=== PATIENT | female | born 1960 | race Caucasian/White ===

== ENCOUNTER → 2016-09-26 | Outpatient (CLI) | payer BC ==
[~2016-09-26] MED LIST: ALEVE 220MG220 MG PO; ANTIVERT 25MG25 MG PO; AZILECT0.5 MG PO; CALCIUM + D 5001 TAB PO; COMBIVENT INH14.7 GM IH; FERREX 150150 MG PO; FLOVENT 44MCG I13 GM IH; FORTAMET1000 MG PO; IMITREX25 MG PO; JANUVIA100 MG PO; LANTUS SOLOS100 U/ML SC; LIPITOR 10MG10 MG PO; MULTIVITAMIN FO1 CAP PO; RT ALBUTER2.5 MG/0.5 IH; VENTOLIN0.09 MG IH; ZESTRIL 10MG10 MG PO; ZYRTEC 10MG10 MG PO; [UNRECOGNIZED DRUG - OTHER] PO
== END ==
LOC: MC.RAD 09:48
DX: Z12.31 Encounter for screening mammogram for malignant neoplasm of breast (principal)

== ENCOUNTER → 2017-11-05 | Outpatient (CLI) | payer BC | LOC: MC.RAD 10:34 | DX: Z12.31 Encounter for screening mammogram for malignant neoplasm of breast (principal) ==

== ENCOUNTER → 2018-10-28 | Outpatient (CLI) | payer BC | LOC: MC.RAD 13:05 | DX: Z12.31 Encounter for screening mammogram for malignant neoplasm of breast (principal); N63.10 Unspecified lump in the right breast, unspecified quadrant ==

== ENCOUNTER → 2018-11-01 | Outpatient (CLI) | payer BC | LOC: MC.RAD 09:24 | DX: N60.01 Solitary cyst of right breast (principal) ==

== ENCOUNTER 2019-05-06 13:11 | Emergency (ER) | payer BC ==
[~2019-05-06] VITALS: Ht 160 cm; Wt 88.6 kg
[2019-05-06 13:55] LABS: COLLECTION METHOD CLEAN CATCH
[2019-05-06 14:00] LABS: BASO % 0.4 % (0.0-2.0); EOS # 0.2 (0.0-0.7); EOS % 1.5 % (0-4.0); GRAN # 7.8 (1.4-6.5); GRAN % 70.9 % (42.2-75.2); HEMATOCRIT 42.5 % (37.0-47.0); HEMOGLOBIN 14.5 g/dl (12.5-16.0); LYMPH # 2.1 (1.2-3.4); LYMPH % 19.2 % (20.0-51.0); MEAN CELL VOLUME 92 fl (80.0-100.0); MEAN CORPUSCULAR HEMOGLOBIN 31 pg (27.0-31.0); MEAN CORPUSCULAR HGB CONC 34 g/dl (33.0-37.0); MEAN PLATELET VOLUME 10.9 fl (7.4-10.4); MONO # 0.8 (0.1-0.6); MONO % 7.5 % (1.7-9.3); PLATELET COUNT 240 K/mm3 (130-400); RED BLOOD COUNT 4.64 M/mm3 (4.10-5.30); REDCELL DISTRIBUTION WIDTH-CV 12.7 % (11.5-14.5)
[2019-05-06 14:03] LABS: PH 5 (5-8); SQUAMOUS EPITHELIAL 0-2 /hpf; URINE APPEARANCE Clear; URINE BACTERIA None Seen /hpf; URINE BILIRUBIN Negative (NEGATIVE); URINE BLOOD Negative (NEGATIVE); URINE COLOR Straw; URINE GLUCOSE Negative (NEGATIVE); URINE KETONE Negative (NEGATIVE); URINE LEUKOCYTE ESTERASE Negative (NEGATIVE); URINE NITRATE Negative (NEGATIVE); URINE PROTEIN(semi-quant) Negative (NEGATIVE); URINE RBC 0-2 /hpf; URINE UROBILINOGEN Negative (NEGATIVE)
[2019-05-06 14:13] LABS: ALBUMIN 4.5 gm/dL (3.5-5.0); BILIRUBIN,TOTAL 0.5 mg/dL (0.0-1.0); C-REACTIVE PROTEIN 4.6 mg/dL (0.0-0.9); CALCIUM 10.5 mg/dL (8.4-10.2); CREATININE, serum 0.6 (0.52-1.25); POTASSIUM 3.8 mmol/L (3.4-5.0); TOTAL PROTEIN 7.3 gm/dL (6.4-8.2)
[2019-05-06] MEDS ORDERED: LEVAQUIN 750MG750 M1 PO (15:25)
[2019-05-06] MEDS ORDERED: FLAGYL500 MG PO (15:25)
[2019-05-06 16:35] VITALS: BP 130/88; PULSE 86; TEMP 98.2
== END 2019-05-06 16:35 | disposition home or self-care (01) ==
LOC: COL.ER 13:11
PROVIDERS: Emergency Medicine
DX: K57.92 Diverticulitis of intestine, part unspecified, without perforation or abscess without bleeding (principal); E11.9 Type 2 diabetes mellitus without complications; I10 Essential (primary) hypertension; E78.5 Hyperlipidemia, unspecified; J45.909 Unspecified asthma, uncomplicated; Z79.51 Long term (current) use of inhaled steroids; Z79.4 Long term (current) use of insulin
CPT/HCPCS: J1200; Q9967

== ENCOUNTER 2020-07-05 10:11 | Emergency (ER) | payer BC ==
[~2020-07-05] VITALS: Ht 162.6 cm; Wt 90.5 kg
[~2020-07-05 10:11] MED LIST changes: +FLAGYL500 MG PO; +LEVAQUIN 750MG750 M1 PO
[2020-07-05 10:55] VITALS: TEMP 98.7
[2020-07-05] MEDS ORDERED: LEVEMIR100 U/ML SQ ×2 (11:40→11:41)
[2020-07-05] MEDS ORDERED: FERROUS GL325 MG/TAB (11:42)
[2020-07-05] MEDS ORDERED: FERRO-TIME325 MG PO (11:42)
[2020-07-05] MEDS ORDERED: GLUCOPHAGE1000 MG PO (11:43)
[2020-07-05] MEDS ORDERED: GLUCOPHAGE500 MG/TAB PO (11:44)
[2020-07-05] MEDS ORDERED: IMITREX 25MG TA25 MG PO (11:45)
[2020-07-05] MEDS ORDERED: REQUIP XL4 MG PO (11:45)
[2020-07-05] MEDS ORDERED: SINGULAIR 110 MG/TAB PO (11:45)
[2020-07-05] MEDS ORDERED: MASON NATURAL2000 IU PO (11:46)
[2020-07-05 12:03] LABS: PROTHROMBIN TIME 10.6 SECONDS (9.7-12.8)
[2020-07-05 12:07] LABS: D-DIMER < 200.00 ng/mLDDu (200-230)
[2020-07-05 12:11] LABS: BASO # 0.1 (0.0-0.2); BASO % 0.7 % (0.0-2.0); EOS # 0.2 (0.0-0.7); EOS % 2.6 % (0-4.0); GRAN # 4.5 (1.4-6.5); GRAN % 64.7 % (42.2-75.2); HEMATOCRIT 42.7 % (37.0-47.0); HEMOGLOBIN 14.4 g/dl (12.5-16.0); LYMPH # 1.7 (1.2-3.4); LYMPH % 24.9 % (20.0-51.0); MEAN CELL VOLUME 92 fl (80.0-100.0); MEAN CORPUSCULAR HEMOGLOBIN 31 pg (27.0-31.0); MEAN CORPUSCULAR HGB CONC 34 g/dl (33.0-37.0); MEAN PLATELET VOLUME 10.9 fl (7.4-10.4); MONO # 0.5 (0.1-0.6); MONO % 6.7 % (1.7-9.3); PLATELET COUNT 252 K/mm3 (130-400); RED BLOOD COUNT 4.63 M/mm3 (4.10-5.30); REDCELL DISTRIBUTION WIDTH-CV 12.5 % (11.5-14.5)
[2020-07-05 12:16] LABS: ALANINE AMINOTRANSFERASE 43 U/L (4-34); ALBUMIN 4.6 gm/dL (3.5-5.0); ALKALINE PHOSPHATASE 90 U/L (50-136); ANION GAP 15 mmol/L (7-16); AST,SGOT 33 U/L (15-37); BILIRUBIN,TOTAL 0.6 mg/dL (0.0-1.0); BLOOD UREA NITROGEN 13 mg/dL (7-17); CALCIUM 10.3 mg/dL (8.4-10.2); CARBON DIOXIDE 20 mmol/L (22-30); CHLORIDE 104 mmol/L (98-107); CREATININE, serum 0.77 (0.52-1.25); GLUCOSE 186 mg/dL (74-106); SODIUM 138 mmol/L (137-145)
[2020-07-05 12:19] LABS: C-REACTIVE PROTEIN < 0.5 mg/dL (0.0-0.9)
[2020-07-05 12:26] LABS: TROPONIN-I < 0.012 ng/mL (0.000-0.035)
[2020-07-05 12:43] LABS: COLLECTION METHOD CLEAN CATCH
[2020-07-05 12:49] LABS: MUCOUS Present /lpf; PH 5 (5-8); SQUAMOUS EPITHELIAL 0-2 /hpf; URINE APPEARANCE Hazy; URINE BACTERIA None Seen /hpf; URINE BILIRUBIN Negative (NEGATIVE); URINE BLOOD Negative (NEGATIVE); URINE COLOR Yellow; URINE GLUCOSE Negative (NEGATIVE); URINE KETONE Negative (NEGATIVE); URINE LEUKOCYTE ESTERASE Trace (NEGATIVE); URINE NITRATE Negative (NEGATIVE); URINE PROTEIN(semi-quant) Negative (NEGATIVE); URINE RBC 0-2 /hpf; URINE UROBILINOGEN Negative (NEGATIVE); URINE WBC 0-2 /hpf
[2020-07-05] MEDS ORDERED: PREDNISONE20 MG PO (17:03)
[2020-07-05 17:29] VITALS: BP 140/84; PULSE 95
== END 2020-07-05 17:40 | disposition home or self-care (01) ==
LOC: COL.ER 10:11
PROVIDERS: Nurse Practitioner Primary Care
DX: J45.901 Unspecified asthma with (acute) exacerbation (principal); E86.0 Dehydration; R74.02 Elevation of levels of lactic acid dehydrogenase [LDH]; I10 Essential (primary) hypertension; E11.9 Type 2 diabetes mellitus without complications; M13.80 Other specified arthritis, unspecified site; G20 Parkinson's disease; Z88.2 Allergy status to sulfonamides; Z20.828 Contact with and (suspected) exposure to other viral communicable diseases; Z88.4 Allergy status to anesthetic agent; Z88.5 Allergy status to narcotic agent; Z88.6 Allergy status to analgesic agent; Z88.8 Allergy status to other drugs, medicaments and biological substances; Z79.4 Long term (current) use of insulin
CPT/HCPCS: J0696; J1200; J7030; Q9967

== ENCOUNTER 2024-02-23 11:35 | Emergency (ER) | payer BC ==
[~2024-02-23] VITALS: Ht 162.6 cm; Wt 93.2 kg
[~2024-02-23 11:35] MED LIST changes: +FERRO-TIME325 MG PO; +FERROUS GL325 MG/TAB; +GLUCOPHAGE1000 MG PO; +GLUCOPHAGE500 MG/TAB PO; +IMITREX 25MG TA25 MG PO; +LEVEMIR100 U/ML SQ; +MASON NATURAL2000 IU PO; +PREDNISONE20 MG PO; +REQUIP XL4 MG PO; +SINGULAIR 110 MG/TAB PO
[2024-02-23 11:55] VITALS: TEMP 98
[2024-02-23] MEDS ORDERED: dexAMETHasone 10 MG/ML VIAL IM ONE (12:30)
[2024-02-23] MEDS ORDERED: PAXLOVID CO-PA1 EACH PO (12:40)
[2024-02-23 13:21] VITALS: BP 127/76; PULSE 88
== END 2024-02-23 13:21 | disposition home or self-care (01) ==
LOC: COL.ER 11:35
DX: U07.1 COVID-19 (principal); R06.02 Shortness of breath; R05.9 Cough, unspecified; R09.81 Nasal congestion; R53.83 Other fatigue; R53.1 Weakness; Z73.0 Burn-out
CPT/HCPCS: J1100